=== PATIENT | male | born 1975 | race Caucasian/White ===

== ENCOUNTER → 2017-10-30 | Outpatient (CLI) | payer BC ==
[2017-10-30 15:46] LABS: ALT 48 U/L (21-72); AST 38 U/L (17-59); Alkaline Phosphatase 34 U/L (38-126); Anion Gap 9 mmol/L; Blood Urea Nitrogen 18 mg/dL (9-20); Calcium 10.4 mg/dL (8.4-10.2); Carbon Dioxide 33 mmol/L (22-30); Chloride 97 mmol/L (98-107); Glucose 101 mg/dL (74-99); Non-African American GFR(MDRD) >60 (>60 ml/min/1.73 sqM); Potassium 4.7 mmol/L (3.5-5.1); Sodium 139 mmol/L (137-145); Total Bilirubin 0.7 mg/dL (0.2-1.3); Total Protein 8.1 g/dL (6.3-8.2)
== END | disposition home or self-care (01) ==
LOC: LABWHC1 14:49
PROVIDERS: ATTEND Internal Medicine Gastroenterology
DX: R94.5 Abnormal results of liver function studies (principal)
CPT/HCPCS: 36415; 80053

== ENCOUNTER → 2020-11-13 | Outpatient (CLI) | payer BC | END | disposition home or self-care (01) | LOC: LABWHC1 13:33 | PROVIDERS: ATTEND Internal Medicine | DX: Z20.822 Contact with and (suspected) exposure to COVID-19 (principal) | CPT/HCPCS: U0003; C9803; U0005 ==

== ENCOUNTER → 2021-02-21 | Outpatient (CLI) | payer BC ==
--- NOTE | 2021-02-21 15:21 | CONS ---
CONSULTATION DATE OF SERVICE: 02/21/2021. This 45-year-old gentleman has been evaluated in the sleep center for possible obstructive sleep apnea-hypopnea syndrome. HISTORY OF PRESENT ILLNESS/SLEEP-WAKE EVALUATION: Patient's usual sleep schedule on working days from 9 or 10 p.m. until 5:30 a.m. on weekends from 9 or 10 p.m. until 6 or 7 a.m. No problems with falling asleep. No TV in bedroom. The patient usually sleeps on the side position. He snores and wakes up from sleep up to 4 times with nocturia, sometimes positive history of sleep walking. During the day he usually does not take naps, takes 4 cups of coffee. [place] Sleepiness Scale is 6. No history of hypnagogic hallucinations, sleep paralysis or cataplexy. PAST MEDICAL HISTORY: Positive for PVCs, hypertriglyceridemia. Positive history of COVID-19 in October 2020. PAST SURGICAL HISTORY: Cholecystectomy. FAMILY HISTORY: Sleep apnea. REVIEW OF SYSTEMS: Snoring in extremely loud range, awakenings from sleep. No fevers. No double vision. No recent chest pain. No shortness of breath. No abdominal pain. No bleeding episodes. No blood in the urine. No seizure episodes. PHYSICAL EXAMINATION: GENERAL: gentleman without distress. VITAL SIGNS: BP 154/84, HR 76, RR 16, Height 5 feet 7-1/2 inches, weight 206, BMI 31.7, temperature 97.4, oxygen saturation at room air 99%. HEENT: PERRLA, EOMI. Oropharynx low position of soft palate. Mallampati 4. NECK: Supple, no JVD. Thyroid is not palpable. LUNGS: Clear to percussion and to auscultation. Good air exchange. No wheezing or rhonchi. HEART: S1, S2 regular. No murmurs, gallops, or rubs. ABDOMEN: Obese. EXTREMITIES: No clubbing or cyanosis. ARCHITECTURAL ENGINEER: Awake, alert, and oriented X3. Cranial nerves 2 to 7 intact. There is no fasciculation or atrophy. noted. No focal deficits observed. IMPRESSION: 1. Loud snoring, awakenings from sleep with nocturia, extremely low position of soft palate. Obstructive sleep apnea-hypopnea syndrome. 2. History of sleepwalking. 3. Hyperlipidemia. 4. History of PVCs. 5. Mild obesity. 6. Status post COVID-19 in October 2020. 7. Status post cholecystectomy. PLAN: 1. Home sleep apnea test for evaluation of patient breathing during sleep. 2. Following plan after reviewing sleep study. 3. CPAP/BiPAP titration if sleep study confirms obstructive sleep apnea-hypopnea syndrome. 4. Preferable position during sleep on the side. 5. No driving if patient feels any sleepiness. 6. I will see patient for follow up visit to explain results of testing and following plan. Thank you very much for referring this patient for consultation. Sincerely, Patrick Silva MD, PhD, FAASM Diplomat of [place] [employer] [place] [employer] Network [employer] Analyst of [facility] MMODL / IJN: [id number] /
== END ==
CPT/HCPCS: 99211